=== PATIENT | male | born 1980 | race American Indian/Alaskan Native ===

== ENCOUNTER 2018-06-29 05:35 | Emergency (ER) | payer SELFPAY ==
[2018-06-29] MEDS ORDERED: MOTRIN PO ONE (08:24)
[2018-06-29] MEDS ORDERED: BOOSTRIX IM ONE (11:15)
[2018-06-29] MEDS ORDERED: CLEOCIN PO ONE (11:15)
--- NOTE | 2018-06-29 11:15 | Emergency Department Report ---
ED ENT HPI - General Chief complaint: Sore Throat Stated complaint: SWOLLEN GUM, SORE THROAT Time Seen by Provider: 06/29/18 10:56 Source: patient Mode of arrival: Ambulatory Limitations: No Limitations - History of Present Illness Initial comments: This is a 38-year-old male here report that he is having pain to his left upper back tooth. He said he tried to get a dentist appointment with [facility] but they did not have any appointment and pain is worse than he came here today. He said the symptoms started yesterday and now he has swelling around it was painful. Reports some chills. Pain 7/10 and throbbing. Worse with eating and talking. Denies any drooling. It was reported in triage noted patient is complaining of sore throat but patient says it is not his throat but he has no difficulty swallowing or drooling denies any tongue swelling. He says he is having pain to the left side of his face that is radiating up his head. Denies any nasal congestion or runny nose. Denies any cough or chest pain. Denies any neck pain or stiffness. He reports he took [id number] pain medication without any relief. MD complaint: tooth pain, other (tooth abscess) Onset/Timin -: days(s) Location: tooth # (left upper back tooth) Severity: severe Severity scale (0 -10): 7 Quality: constant, other (throbbing) Consistency: constant Improves with: none Worsens with: eating, movement Context- Dental: history of dental caries, poor dental care Associated Symptoms: gum swelling, toothache, other (patient reports that he thinks that the abscess burst but is not sure.). denies: cough, pain with swallowing, sore throat, tinnitus, hearing loss, discharge from ear, rhinorrhea - Related Data Previous Rx's Medication Instructions Recorded Last Taken Type Acetaminophen/Codeine [Tylenol 1 tab PO Q6H PRN #14 tab 06/29/18 Unknown Rx /Codeine # 3 tab] Chlorhexidine Mouthwash [Peridex] 15 ml MM TID 7 Days #1 bottle 06/29/18 Unknown Rx Clindamycin [Clindamycin CAP] 300 mg PO Q8H 10 Days #30 cap 06/29/18 Unknown Rx Ibuprofen [Motrin] 800 mg PO Q8HR PRN #15 tablet 06/29/18 Unknown Rx Allergies Allergy/AdvReac Type Severity Reaction Status Date / Time No Known Allergies Allergy Unverified 06/29/18 08:24 ED Dental HPI - General Chief complaint: Sore Throat Stated complaint: SWOLLEN GUM, SORE THROAT Time Seen by Provider: 06/29/18 10:56 Source: patient Mode of arrival: Ambulatory Limitations: No Limitations - Related Data Previous Rx's Medication Instructions Recorded Last Taken Type Acetaminophen/Codeine [Tylenol 1 tab PO Q6H PRN #14 tab 06/29/18 Unknown Rx /Codeine # 3 tab] Chlorhexidine Mouthwash [Peridex] 15 ml MM TID 7 Days #1 bottle 06/29/18 Unknown Rx Clindamycin [Clindamycin CAP] 300 mg PO Q8H 10 Days #30 cap 06/29/18 Unknown Rx Ibuprofen [Motrin] 800 mg PO Q8HR PRN #15 tablet 06/29/18 Unknown Rx Allergies Allergy/AdvReac Type Severity Reaction Status Date / Time No Known Allergies Allergy Unverified 06/29/18 08:24 ED Review of Systems ROS: Stated complaint: SWOLLEN GUM, SORE THROAT Other details as noted in HPI Constitutional: chills. denies: fever Eyes: denies: eye discharge ENT: dental pain. denies: ear pain, congestion Respiratory: denies: cough, shortness of breath, SOB with exertion, SOB at rest , wheezing Cardiovascular: denies: chest pain, palpitations, edema, syncope Gastrointestinal: denies: nausea, vomiting Musculoskeletal: denies: back pain, joint swelling, arthralgia, myalgia Skin: denies: rash, lesions Neurological: headache. denies: paresthesias ED Past Medical Hx - Past Medical History Previous Medical History?: Yes - Surgical History Past Surgical History?: No - Family History Family history: hypertension - Social History Smoking Status: Never Smoker Substance Use Type: None - Medications Home Medications: Home Medications Medication Instructions Recorded Confirmed Last Taken Type Acetaminophen/Codeine [Tylenol 1 tab PO Q6H PRN #14 tab 06/29/18 Unknown Rx /Codeine # 3 tab] Chlorhexidine Mouthwash [Peridex] 15 ml MM TID 7 Days #1 bottle 06/29/18 Unknown Rx Clindamycin [Clindamycin CAP] 300 mg PO Q8H 10 Days #30 cap 06/29/18 Unknown Rx Ibuprofen [Motrin] 800 mg PO Q8HR PRN #15 tablet 06/29/18 Unknown Rx ED Physical Exam - General Limitations: No Limitations General appearance: alert, in no apparent distress - Head Head exam: Present: atraumatic, normocephalic, normal inspection - Eye Eye exam: Present: normal appearance, PERRL, EOMI - ENT ENT exam: Present: normal orophraynx, mucous membranes moist, TM's normal bilaterally, normal external ear exam, other (bilateral frontAL /maxillary sinuses nontender to palpate). Absent: normal exam - Expanded ENT Exam Expanded Ear exam: Present: normal external inspection Mouth exam: Present: tongue normal. Absent: drooling, trismus, muffled voice Teeth exam: Present: dental caries, dental tenderness # (#16), gingival enlargement (and gingivitis), other (positive induration with minimal fluctuance to left upper, posteriorly, surrounding tooth #16). Absent: normal inspection Throat exam: Positive: normal inspection. Negative: R peritonsillar mass, L peritonsillar mass - Neck Neck exam: Present: normal inspection, full ROM. Absent: tenderness, lymphadenopathy - Expanded Neck Exam Expanded Neck exam: Absent: tenderness, midline deformity, anterior neck swelling, tracheal deviation - Respiratory Respiratory exam: Present: normal lung sounds bilaterally. Absent: respiratory distress, chest wall tenderness - Cardiovascular Cardiovascular Exam: Present: normal rhythm, tachycardia, normal heart sounds - GI/Abdominal GI/Abdominal exam: Present: soft, normal bowel sounds. Absent: tenderness - Extremities Exam Extremities exam: Present: normal inspection, full ROM, normal capillary refill , other (No cce. + 2 pulses in all extremities, no neurovascular compromise). Absent: tenderness, pedal edema, joint swelling, calf tenderness - Neurological Exam Neurological exam: Present: alert, oriented X3, normal gait - Psychiatric Psychiatric exam: Present: normal affect, normal mood - Skin Skin exam: Present: warm, dry, intact, normal color. Absent: rash ED Course Vital Signs 06/29/18 06/29/18 06/29/18 07:29 08:33 08:53 Temperature 100.2 F H Pulse Rate 111 H Respiratory 18 18 18 Rate Blood Pressure 147/97 Blood Pressure [Left] O2 Sat by Pulse 97 Oximetry 06/29/18 12:14 Temperature Pulse Rate 82 Respiratory 16 Rate Blood Pressure Blood Pressure 149/106 [Left] O2 Sat by Pulse 98 Oximetry - Reevaluation(s) Reevaluation #1: 06/29/18 11:56 Patient given Motrin 800 mg and emergency room for dental pain. Pain subsided to 10. Please refer to procedure note for incision and drainage of dental abscess. - I & D Left Upper Posterior Cheek Type of Procedure: Simple Site: left upper, posterior gumline around tooth #16 Blade Size: #18-gauge needle Progress: Patient with dental abscess around #16. Patient given mouthwash to rinse his mouth out then 0.5% bupivacaine, 3 mL injected used to achieve local anesthesia. Extracted 5 mL of pus from abscess. Patient still has some injury to the area without any fluctuance. Mouth was used to rinse his mouth. Patient tolerated procedure well. ED Medical Decision Making - Medical Decision Making This is a 38-year-old male he reports that he is having dental pain with abscess to his left back tooth. He reports that he has access to a dentist but he cannot get in for an appointment so he is here for treatment. PROCEDURE: Incision and drainage of dental abscess. Please refer to procedure note for details Assessment/plan 1: Abscess tooth #16-status post procedure note for incision and drainage. See procedure note for detail 2: Toothache #16 3: Gingivitis with gingival enlargement 4: Dental caries Patient given clindamycin 600 mg by mouth, ibuprofen 800 mg by mouth and discharged 0.5 mL IM. Medication given for abscess, toothache and to update tetanus. I discussed the patient that he needs to follow-up with dentist regarding dental cavities, toothache, gingivitis and tooth abscess that is partially drained. I told him he needs to use mouthwash which I will prescribe for him to swish and at at least 3 times a day. I also told him if he cannot get in with his dentist then I can refer him to [facility] dental clinic and he agrees. I told him to call tomorrow to schedule an appointment for follow-up visit in 3-5 days and he agrees also told him if his swelling to his mouth worsens, increase in fever, to return to the emergency room. Patient agrees. Patient discharged home in stable condition with prescription for clindamycin, Peridex mouthwash, Tylenol No. 3 and Motrin. Patient vital signs stable and low -grade temp of 99.1. Critical care attestation.: If time is entered above; I have spent that time in minutes in the direct care of this critically ill patient, excluding procedure time. ED Disposition Clinical Impression: Toothache, Abscess, dental, Status post incision and drainage, Dental caries, Gingivitis Disposition: TO HOME OR SELFCARE Is pt being admited?: No Does the pt Need Aspirin: No Condition: Stable Instructions: Dental Abscess (ED), Dental Caries (ED), Gingivitis (ED), Abscess Incision and Drainage (ED), Toothache (ED) Additional Instructions: Please follow up with dentist as discussed. See alternative dentist and discharge instruction paperwork if needed. Take Motrin for mild to moderate pain and please take this medication with food. Take Tylenol No. 3 for severe pain and please do not drive or operate heavy machinery while taking this medication. Take clindamycin as prescribed. Please see floss twice daily Gargle Peridex mouthwash twice daily Prescriptions: Acetaminophen/Codeine [Tylenol /Codeine # 3 tab] 1 tab PO Q6H PRN #14 tab PRN Reason: moderate to severe pain Chlorhexidine Mouthwash [Peridex] 15 ml MM TID 7 Days #1 bottle Clindamycin [Clindamycin CAP] 300 mg PO Q8H 10 Days #30 cap Ibuprofen [Motrin] 800 mg PO Q8HR PRN #15 tablet PRN Reason: pain Referrals: PRIMARY CARE, [Primary Care Provider] - 3-5 Days [facility] [Outside] - 3-5 Days [facility] [Outside] - 3-5 Days Forms: Work/School Release Form(ED)
[2018-06-29] MEDS ORDERED: MARCAINE 0.5% INFILTRATI ONE (11:18)
[2018-06-29 12:18] VITALS: BP 148/92
== END 2018-06-29 12:19 | disposition home or self-care (01) ==
LOC: ED 05:35
DX: K04.7 Periapical abscess without sinus (principal); K02.9 Dental caries, unspecified; K05.00 Acute gingivitis, plaque induced
CPT/HCPCS: 90471; 90715; 99282